=== PATIENT | female | born 1980 | race Two or more races ===

== ENCOUNTER 2019-04-04 23:03 | Emergency (ER) | payer OTHER ==
[2019-04-04 23:08] VITALS: BMI 33.3
[2019-04-05] MEDS ORDERED: ACETAMINOPHEN 325 MG TABLET (FP) PO ONE (00:30)
[2019-04-05] MEDS ORDERED: ONDANSETRON *ODT* 4 MG TABLET SL ONE (00:30)
[2019-04-05] MEDS ORDERED: ACETAMINOPHEN 325 MG TABLET (FP) ONE (00:33)
[2019-04-05] MEDS ORDERED: ONDANSETRON *ODT* 4 MG TABLET ONE (00:34)
[2019-04-05] MEDS ORDERED: IBUPROFEN 400 MG TABLET (FP) PO ONE ×2 (00:44→00:54)
[2019-04-05 01:12] LABS: EPI CELLS 7.5 /HPF (0-5/HPF); HYALINE CASTS 3 /lpf (0-8); URINE APPEARANCE CLEAR; URINE BACTERIA 181.7 /hpf (NEGATIVE); URINE BILIRUBIN NEGATIVE (NEGATIVE); URINE COLOR YELLOW; URINE GLUCOSE (UA) NEGATIVE (NEGATIVE); URINE KETONE NEGATIVE (NEGATIVE); URINE LEUK ESTERASE 1+ (NEGATIVE); URINE NITRITE NEGATIVE (NEGATIVE); URINE PROTEIN NEGATIVE (NEGATIVE); URINE RBC 1 /hpf (0-4); URINE UROBILINOGEN 0.2 mg/dL (0.2-1.0); URINE WBC 7 /hpf (0-5)
[2019-04-05 01:26] LABS: HCG,QUALITATIVE URINE Negative
--- NOTE | 2019-04-05 01:58 | PDOC ---
History of Present Illness - General Chief Complaint: Respiratory Stated Complaint: COLD SYMPTOMS Time Seen by Provider: 04/05/19 00:19 History Source: Patient, Spouse Exam Limitations: No Limitations Past History - Past Medical History Allergies/Adverse Reactions: Allergies Allergy/AdvReac Type Severity Reaction Status Date / Time No Known Allergies Allergy Verified 04/05/19 00:32 Home Medications: Ambulatory Orders NK [No Known Home Medication] 04/05/19 COPD: No - Suicide/Smoking/Psychosocial Hx Smoking History: Never smoked *Physical Exam - Vital Signs Last Vital Signs Temp Pulse Resp BP Pulse Ox 98.2 F 63 18 126/86 100 04/04/19 23:05 04/04/19 23:05 04/04/19 23:05 04/04/19 23:05 04/04/19 23:05 - Physical Exam General Appearance: No: Apparent Distress HEENT: positive: Pharynx Normal Neck: positive: Supple Respiratory/Chest: positive: Lungs Clear, Normal Breath Sounds. negative: Respiratory Distress Cardiovascular: positive: Regular Rhythm, Regular Rate, S1, S2. negative: Murmur Gastrointestinal/Abdominal: positive: Normal Bowel Sounds, Soft. negative: Tender, Distended, Guarding, Rebound Musculoskeletal: positive: Other (Mild L CVA tenderness) Extremity: negative: Pedal Edema, Swelling, Calf Tenderness Integumentary: positive: Normal Color Neurologic: positive: Alert, Normal Mood/Affect ED Treatment Course - ADDITIONAL ORDERS Additional order review: Laboratory Results 04/05/19 00:58 Urine Color Yellow Urine Appearance Clear Urine pH 5.0 Ur Specific Moran 1.010 Urine Protein Negative Urine Glucose (UA) Negative Urine Ketones Negative Urine Blood Negative Urine Nitrite Negative Urine Bilirubin Negative Urine Urobilinogen 0.2 Ur Leukocyte Esterase 1+ H Urine WBC (Auto) 7 Urine RBC (Auto) 1 Urine Casts (Auto) 3 U Epithel Cells (Auto) 7.5 Urine Bacteria (Auto) 181.7 Urine HCG, Qual Negative - RADIOLOGY Radiology Studies Ordered: Category Date Time Status CHEST PA & LAT [RAD] Stat Radiology 04/05/19 00:43 Taken - Medications Given in the ED: ED Medications Discontinued Medications Generic Name Dose Route Start Last Admin Trade Name Freq PRN Reason Stop Dose Admin Acetaminophen 975 mg 04/05/19 00:30 04/05/19 00:43 Tylenol - PO 04/05/19 00:31 Not Given ONCE ONE Ibuprofen 800 mg 04/05/19 00:44 04/05/19 01:02 Motrin - PO 04/05/19 00:45 800 mg ONCE ONE Administration Ondansetron HCl 4 mg 04/05/19 00:30 04/05/19 00:43 Zofran Odt - SL 04/05/19 00:31 Not Given ONCE ONE Medical Decision Making - Medical Decision Making 38 y/o F with no sig pmh presents with dry cough x 3 weeks along with L flank pain from today. Pain is worse with movement of body. Saw her PCP 3 days ago and was told her sxs are related to allergies; was given nasal decongestant. Patient denies fever, rhinorrhea, congestion, sneezing, watery eyes, sore throat , sob, cp, abd pain, n/v/d, urinary complaints, recent travel, use of OCPs. Possible MSK pain? UA with 1+ leuks, some bacteria, no blood Unlikely pyelo or kidney stones; less suspicious for UTI given no urinary complaints CXR shows slightly enlarged heart compared to prior; lateral view appears somewhat hazy, but no obvious opacity noted Lungs were clear on exam Will do bedside cardiac ultrasound Of note, patient was given Motrin and noted improvement in pain from that 04/05/19 01:54 Bedside cardiac ultrasound appears normal, no pericardial effusion noted Not suspicious for PNA given afebrile, lungs clear No evidence of CHF on exam Given improvement in pain with Motrin, likely MSK Stable for dc 04/05/19 02:24 *DC/Admit/Observation/Transfer Diagnosis at time of Disposition: Cough, Rib pain on left side - Discharge Dispostion Disposition: HOME Condition at time of disposition: Stable Decision to Admit order: No - Referrals - Patient Instructions Additional Instructions: Thank you for choosing [facility]. It was a pleasure taking care of you. You may take Motrin 600 mg every 6 hours by mouth as needed for mild to moderate pain. Take Motrin with food. Likely this is musculoskeletal pain Follow-up with your doctor in 2 days Return to the Emergency Department if your symptoms worsen or persist, you have fever, shortness of breath, chest pain, swelling of extremities or other concerning symptoms. - Post Discharge Activity
[2019-04-05 02:42] VITALS: BP 122/78; PULSE 65; TEMP 98.4
== END 2019-04-05 02:46 | disposition home or self-care (01) ==
LOC: JER 23:03
PROC: B246ZZZ Ultrasonography of Right and Left Heart (ICD-10-PCS; principal; 2019-04-04)
DX: R05 Cough (principal); R07.81 Pleurodynia; I51.7 Cardiomegaly
CPT/HCPCS: 71046-TC-FY; 81003; 84703; 99283-25